=== PATIENT | female | born 1965 | race Caucasian/White ===

== ENCOUNTER → 2021-05-28 14:25 | Outpatient (CLI) | payer BC ==
[~2021-05-28 14:25] MED LIST: MOTRIN800 MG PO
== END | disposition home or self-care (01) ==
LOC: NUCLEAR 14:25
PROVIDERS: ATTEND Internal Medicine Sports Medicine
DX: M81.0 Age-related osteoporosis without current pathological fracture (principal)

== ENCOUNTER 2023-08-29 13:47 | Outpatient (CLI) | payer BC | END 2023-08-29 13:48 | disposition home or self-care (01) | LOC: NUCLEAR 13:47 | PROVIDERS: ATTEND Internal Medicine Sports Medicine | DX: M81.0 Age-related osteoporosis without current pathological fracture (principal) ==